=== PATIENT | male | born 1985 | race Caucasian/White ===

== ENCOUNTER 2016-10-06 04:51 | Emergency (ER) | payer MEDICAID ==
[2016-10-06 05:00] VITALS: BP 131/82
[2016-10-06] MEDS ORDERED: PENICILLIN V POTASSIUM 500 MG TABLET PO ONE (06:14)
--- NOTE | 2016-10-06 06:14 | ER Document Report ---
ED Oral Problem - General Mode of Arrival: Ambulatory Information source: Patient TRAVEL OUTSIDE OF THE [place] IN LAST 30 DAYS: No - HPI Patient complains to provider of: Toothache Onset: Other - see narrative Quality of pain: Achy Severity: None Associated symptoms: None Similar symptoms previously: Yes - General Chief Complaint: Toothache Stated Complaint: TOOTHACHE Time Seen by Provider: 10/06/16 06:04 Notes: Patient is a 31 year old male that presents to the emergency department today with complaints of dental pain 1 week. Patient states that the pain got much worse over the last 2 days. Patient states he had a Toradol pill from a previous illness at home he took prior to arrival. Patient states this relieved most of his pain. Patient states he has had multiple dental caries in the past. Patient states that he cannot get into see his dentist for 2 weeks because she is "very busy". (RICARDA LEW) - Related Data Allergies/Adverse Reactions: No Known Allergies Allergy (Verified 07/16/14 02:33) Past Medical History - General Information source: Patient, [facility] Records - Social History Smoking Status: Current Every Day Smoker Frequency of alcohol use: None Drug Abuse: None Lives with: Family Family History: Arthritis, CAD, CVA, DM, Hyperlipidemia, Hypertension, Malignancy Patient has suicidal ideation: No Patient has homicidal ideation: No GI Medical History: Reports: Hx Gastroesophageal Reflux Disease Musculoskeltal Medical History: Reports Hx Arthritis, Reports Hx Musculoskeletal Trauma Traumatic Medical History: Reports: Hx Fractures Past Surgical History: Reports: Hx Oral Surgery - Immunizations Immunizations up to date: Yes Hx Diphtheria, Pertussis, Tetanus Vaccination: Yes - 2009 Review of Systems - Review of Systems Constitutional: No symptoms reported EENT: See HPI, Mouth pain, Dental problem Cardiovascular: No symptoms reported Respiratory: No symptoms reported Gastrointestinal: No symptoms reported Genitourinary: No symptoms reported Male Genitourinary: No symptoms reported Musculoskeletal: No symptoms reported Skin: No symptoms reported Hematologic/Lymphatic: No symptoms reported Neurological/Psychological: No symptoms reported -: Yes All other systems reviewed and negative Physical Exam - Vital signs Vitals: Temp Pulse Resp BP Pulse Ox 98.0 F 80 16 131/82 H 98 10/06/16 04:59 10/06/16 04:59 10/06/16 04:59 10/06/16 04:59 10/06/16 04:59 - Notes Notes: Physical Exam: General: Alert, appears well. HEENT: Normocephalic. Atraumatic. PERRLA. Extraocular movements intact. Oropharynx clear. Diffuse dental caries, chipped filling at tooth #20, no abscess appreciated. No posterior pharynx swelling, airway patent. Neck: Supple. Cardiovascular: Regular rate and rhythm. Respiratory: No respiratory distress. Abdominal: Normal Inspection. No distension. Extremities: Moves all four extremities. Neurological: Normal cognition. AAOx4. Normal speech. Psychological: Normal affect. Normal Mood. Skin: Warm. Dry. Normal color. (RICARDA LEW) Course - Re-evaluation Re-evalutation: 10/06/16 06:21 Patient presents emergency department with toothache for the past week. He says got increasingly worse the past few days this particular tooth has had fillings before and is chipped. It is the lower left mandibular molar. There is no associated periapical abscess swelling facial swelling abscess. No posterior pharyngeal edema trachea midline neck is supple is well-appearing nontoxic no acute respiratory distress will be seen to go pack of Vicodin prescription for Ultram and pen VK. He has a dental appointment in 2 weeks. And discussed reasons for ED return sooner (BONITA HUTTON) - Vital Signs Vital signs: Temp Pulse Resp BP Pulse Ox 98.0 F 80 16 131/82 H 98 10/06/16 04:59 10/06/16 04:59 10/06/16 04:59 10/06/16 04:59 10/06/16 04:59 Discharge - Discharge Clinical Impression: Dental caries Condition: Stable Disposition: HOME, SELF-CARE Instructions: Toothache ([facility]) Additional Instructions: Dental Infection or Abscess You have an infection, perhaps an abscess (pus formation) of the gum around one of your teeth, which is probably decayed. If there is an abscess, it may drain on its own or it may need to be opened or lanced. Severe swelling or drainage around a tooth usually means a deep dental abscess which usually requires evaluation and treatment by a dentist or oral surgeon. Antibiotics may be prescribed while awaiting dental treatment. If you develop high fever with chills, worsening pain, or increasing swelling in the area, see a dentist or oral surgeon immediately or return to the Emergency Department immediately. Follow up with your dental physician as you have an appointment return for increasing worsening or new symptoms Prescriptions: Penicillin V Potassium [Penicillin Vk 500 mg Tablet] 500 mg PO BID #20 tablet Tramadol HCl [Ultram 50 mg Tablet] 50 mg PO ASDIR PRN #12 tablet PRN Reason: Referrals: MIRIAN PITT MD [Primary Care Provider] - Follow up as needed Scribe Attestation: 10/06/16 06:21 I personally performed the services described in the documentation reviewed the documentation recorded by my scribe in my presence and it accurately and completely records my words and actions (BONITA HUTTON) Scribe Documentation - Scribe Written by Scribe:: Honorio Velasquez, [id number] acting as scribe for :: Sohail
[2016-10-06] MEDS ORDERED: HYDROCODONE/ACETAMINOPHEN 5-325 MG 6 TAB/DSPK PO PRN (06:18)
== END 2016-10-06 06:54 | disposition home or self-care (01) ==
LOC: ER 04:51
DX: K02.9 Dental caries, unspecified (principal); K08.89 Other specified disorders of teeth and supporting structures; Z79.899 Other long term (current) drug therapy; F17.200 Nicotine dependence, unspecified, uncomplicated
CPT/HCPCS: 99282

== ENCOUNTER 2016-11-18 00:38 | Emergency (ER) | payer SELFPAY ==
--- NOTE | 2016-11-18 01:34 | ER Document Report ---
ED Medical Screen (RME) - General Chief Complaint: Drug Abuse Stated Complaint: DRUG DETOX Time Seen by Provider: 11/18/16 01:24 Notes: 31-year-old male, history of opiate abuse, states he takes off the street Percocets and recently with ever he can get his hands on. He states he wants to go to detox, he wants to talk to a psychiatrist, and he wants help. He denies suicidal or homicidal ideations. He denies any nausea or vomiting, he denies feeling ill at this time. TRAVEL OUTSIDE OF THE [place] IN LAST 30 DAYS: No - Related Data Allergies/Adverse Reactions: No Known Allergies Allergy (Verified 11/18/16 00:44) Past Medical History - Social History Chew tobacco use (# tins/day): No Frequency of alcohol use: None Drug Abuse: Heroin, Prescription drugs, Other Renal/ Medical History: Denies: Hx Peritoneal Dialysis GI Medical History: Reports: Hx Gastroesophageal Reflux Disease Musculoskeltal Medical History: Reports Hx Arthritis, Reports Hx Musculoskeletal Trauma Traumatic Medical History: Reports: Hx Fractures Past Surgical History: Reports: Hx Oral Surgery - Immunizations Immunizations up to date: Yes Hx Diphtheria, Pertussis, Tetanus Vaccination: Yes - 2009 Physical Exam - Vital signs Vitals: Temp Pulse Resp BP Pulse Ox 99.0 F 92 14 142/84 H 98 11/18/16 00:44 11/18/16 00:44 11/18/16 00:44 11/18/16 00:44 11/18/16 00:44 - Psychological Associated symptoms: No: Normal affect - Flat affect, speaks quietly, but makes good eye contact Course - Re-evaluation Re-evalutation: Patient states he does not want to leave at this time with medications to help with opiate withdrawal symptoms to follow-up with [facility]. He states he wants to think about it and he wants to talk to a psychiatrist. He is calm, he does not appear to be a danger to himself or others. He denies SI or HI. - Vital Signs Vital signs: Temp Pulse Resp BP Pulse Ox 99.0 F 92 14 142/84 H 98 11/18/16 00:44 11/18/16 00:44 11/18/16 00:44 11/18/16 00:44 11/18/16 00:44
--- NOTE | 2016-11-18 02:53 | ER Document Report ---
ED Substance Abuse / Acc. OD - General Mode of Arrival: Ambulatory Information source: Patient TRAVEL OUTSIDE OF THE [place] IN LAST 30 DAYS: No - HPI Patient complains to provider of: Substance abuse Quality of pain: No pain <RICARDA LEW - Last Filed: 11/18/16 05:43> <NANI SMITH - Last Filed: 11/18/16 07:00> - General Chief Complaint: Drug Abuse Stated Complaint: DRUG DETOX Time Seen by Provider: 11/18/16 01:24 Notes: Patient is a 31-year-old male who presents to the emergency department today with a request for help with detox. Patient states he has been abusing prescription drugs since approximately 2008. Patient states when he ran out of Percocet he would "do whatever he could get his hands on". Patient admits to opiate abuse, crack cocaine abuse, and heroin abuse. Patient states he snorts all of these drugs, denying any injection. (RICARDA LEW) - Related Data Allergies/Adverse Reactions: No Known Allergies Allergy (Verified 11/18/16 00:44) Home Medications: Current Home Medications No Home Medications 11/18/16 [History] Past Medical History - General Information source: Patient - Social History Smoking Status: Current Every Day Smoker Cigarette use (# per day): Yes Chew tobacco use (# tins/day): No Frequency of alcohol use: None Drug Abuse: Cocaine, Heroin, Prescription drugs Lives with: Family Family History: Reviewed & Not Pertinent, Arthritis, CAD, CVA, DM, Hyperlipidemia, Hypertension, Malignancy GI Medical History: Reports: Hx Gastroesophageal Reflux Disease Musculoskeltal Medical History: Reports Hx Arthritis, Reports Hx Musculoskeletal Trauma Traumatic Medical History: Reports: Hx Fractures Past Surgical History: Reports: Hx Oral Surgery - Immunizations Immunizations up to date: Yes Hx Diphtheria, Pertussis, Tetanus Vaccination: Yes - 2009 <RICARDA LEW - Last Filed: 11/18/16 05:43> Review of Systems - Review of Systems Constitutional: No symptoms reported EENT: No symptoms reported Cardiovascular: No symptoms reported Respiratory: No symptoms reported Gastrointestinal: No symptoms reported Genitourinary: No symptoms reported Male Genitourinary: No symptoms reported Musculoskeletal: No symptoms reported Skin: No symptoms reported Hematologic/Lymphatic: No symptoms reported Neurological/Psychological: Other - requesting help with detox -: Yes All other systems reviewed and negative <RICARDA LEW - Last Filed: 11/18/16 05:43> Physical Exam <RICARDA LEW - Last Filed: 11/18/16 05:43> <NANI SMITH - Last Filed: 11/18/16 07:00> - Vital signs Vitals: Temp Pulse Resp BP Pulse Ox 99.0 F 92 14 142/84 H 98 11/18/16 00:44 11/18/16 00:44 11/18/16 00:44 11/18/16 00:44 11/18/16 00:44 - Notes Notes: PHYSICAL EXAM GENERAL: Alert, interacts well. No acute distress. HEAD: Normocephalic, atraumatic. EYES: Pupils equal, round, and reactive to light. Extraocular movements intact. ENT: Oral mucosa moist, tongue midline. NECK: Full range of motion. Supple. Trachea midline. LUNGS: Clear to auscultation bilaterally, no wheezes, rales, or rhonchi. No respiratory distress. HEART: Regular rate and rhythm. No murmurs, gallops, or rubs. ABDOMEN: Soft, non-tender. Non-distended. Bowel sounds present in all 4 quadrants. EXTREMITIES: Moves all 4 extremities spontaneously. No edema, radial and dorsalis pedis pulses 2/4 bilaterally. No cyanosis. NEUROLOGICAL: Alert and oriented x3. Normal speech. PSYCH: Normal affect, normal mood. SKIN: Warm, dry, normal turgor. No rashes or lesions noted. (RICARDA LEW) Course - Laboratory Result Diagrams: 11/18/16 03:05 11/18/16 03:05 <RICARDA LEW - Last Filed: 11/18/16 05:43> - Laboratory Result Diagrams: 11/18/16 03:05 11/18/16 03:05 <NANI SMITH - Last Filed: 11/18/16 07:00> - Re-evaluation Re-evalutation: 11/18/16 06:58 CBC shows slight leukocytosis of 10 point, mild anemia with hemoglobin 13.4, CMP unremarkable, urinalysis unremarkable, urine drug screen shows opiates, cocaine, marijuana. 11/18/16 06:58 Patient is medically cleared, request to stay until he can speak with our mental health team. Does not meet IVC criteria. May be discharged any time prior to seeing mental health team should he so choose. (NANI SMITH) - Vital Signs Vital signs: Temp Pulse Resp BP Pulse Ox 98.7 F 85 16 133/80 H 99 11/18/16 06:42 11/18/16 06:42 11/18/16 06:42 11/18/16 06:42 11/18/16 06:42 - Laboratory Laboratory results interpreted by me: 11/18/16 11/18/16 03:05 03:05 WBC 10.8 H Hgb 13.4 L AST 14 L Discharge <RICARDA LEW - Last Filed: 11/18/16 05:43> <NANI SMITH - Last Filed: 11/18/16 07:00> - Discharge Clinical Impression: Polysubstance abuse Hypertension Qualifiers: Hypertension type: essential hypertension Qualified Code(s): I10 - Essential ( primary) hypertension Condition: Stable Disposition: HOME, SELF-CARE Forms: Elevated Blood Pressure Referrals: [facility] [Provider Group] - Follow up as needed Scribe Attestation: 11/18/16 06:59 I personally performed the services described in the documentation, reviewed and edited the documentation which was dictated to the scribe in my presence, and it accurately records my words and actions. (NANI SMITH) Scribe Documentation - Scribe Written by Scribe:: Honorio Velasquez, [id number] 11/18/2016 acting as scribe for :: Elizabeth <RICARDA LEW - Last Filed: 11/18/16 05:43>
[2016-11-18] MEDS ORDERED: NICOTINE 14 MG/24 HR PATCH.TD24 TD SCH ×2 (03:15→10:00)
[2016-11-18] MEDS ORDERED: NICOTINE 14 MG/24 HR PATCH.TD24 TD ONE (03:15)
[2016-11-18 03:16] LABS: ABSOLUTE BASOPHILS # (AUTO) 0.1 10^3/uL (0.0-0.2); ABSOLUTE EOSINOPHILS # (AUTO) 0.1 10^3/uL (0.0-0.6); ABSOLUTE LYMPHOCYTES (AUTO) 3.1 10^3/uL (0.5-4.7); ABSOLUTE MONOCYTES (AUTO) 0.9 10^3/uL (0.1-1.4); ABSOLUTE NEUT (AUTO) 6.5 10^3/uL (1.7-8.2); BASOPHILS % (AUTO) 0.9 % (0-2); EOSINOPHILS % (AUTO) 1.3 % (0-6); HEMATOCRIT 39.6 % (37.9-51.0); HEMOGLOBIN 13.4 g/dL (13.5-17.0); HGB HCT DIFFERENCE 0.6; LYMPHOCYTES % (AUTO) 29.1 % (13-45); MEAN CORPUSCULAR HEMOGLOBIN 30.3 pg (27.0-33.4); MEAN CORPUSCULAR HGB CONC 33.8 g/dL (32.0-36.0); MEAN CORPUSCULAR VOLUME 90 fl (80-97); MONOCYTES % (AUTO) 8.3 % (3-13); RED BLOOD COUNT 4.42 10^6/uL (4.35-5.55); RED CELL DISTRIBUTION WIDTH 13.9 % (11.5-14.0); SEGMENTED NEUTROPHILS % (AUTO) 60.4 % (42-78); WHITE BLOOD COUNT 10.8 10^3/uL (4.0-10.5)
[2016-11-18 03:26] LABS: APPEARANCE,URINE TURBID; BILIRUBIN,URINE NEGATIVE (NEGATIVE); CALCIUM OXALATE CRYSTALS,URINE RARE /HPF; GLUCOSE, URINE NEGATIVE (NEGATIVE); KETONES,URINE NEGATIVE (NEGATIVE); LEUKOCYTE ESTERASE,URINE NEGATIVE (NEGATIVE); NITRITE,URINE NEGATIVE (NEGATIVE); PROTEIN,URINE NEGATIVE (NEGATIVE); URINE SPECIFIC GRAVITY 1.016; UROBILINOGEN,URINE NEGATIVE mg/dL (<2.0)
[2016-11-18 03:29] LABS: ALANINE AMINOTRANSFERASE 25 U/L (21-72); ALBUMIN 4.1 g/dL (3.5-5.0); ALKALINE PHOSPHATASE 62 U/L (38-126); ANION GAP 9 (5-19); ASPARTATE AMINO TRANSFERASE 14 U/L (17-59); BILIRUBIN,DIRECT 0.3 mg/dL (0.0-0.4); BILIRUBIN,TOTAL 0.6 mg/dL (0.2-1.3); BLOOD UREA NITROGEN 8 mg/dL (7-20); CALCIUM 9.1 mg/dL (8.4-10.2); CARBON DIOXIDE 29 mmol/L (22-30); CHLORIDE 104 mmol/L (98-107); CREATININE RESULT 1.15 mg/dL (0.52-1.25); GLUCOSE 92 mg/dL (75-110); SODIUM 142.4 mmol/L (137-145); TOTAL PROTEIN 6.9 g/dL (6.3-8.2)
[2016-11-18 03:34] LABS: URINE BARBITURATES SCREEN NEGATIVE; URINE METHADONE SCREEN NEGATIVE; URINE OPIATES LOW UNCONFIRMED POSITIVE; URINE PHENCYCLIDINE SCREEN NEGATIVE
--- NOTE | 2016-11-18 09:16 | ER Document Report ---
ED Psych Disorder / Suicide - General Chief Complaint: Drug Abuse Stated Complaint: DRUG DETOX Time Seen by Provider: 11/18/16 01:24 Mode of Arrival: Ambulatory Information source: Patient, [facility] Records TRAVEL OUTSIDE OF THE [place] IN LAST 30 DAYS: No - HPI Patient complains to provider of: Other - drug abuse Onset: Other Onset was: Cannot confirm Suicide Risk Factors: Substance abuse Normal mood: Yes Associated symptoms: Flat affect Similar symptoms previously: Yes Recently seen / treated by doctor: No Notes: Patient is a 31 year old male who presented over night seeking assistance for chronic prescription and illicit drug abuse and possible detox. Patient was held overnight to speak with behavioral health, to assist with possible resources, etc. Patient this morning states he has "been abusing the sh out of Percocets since 2007." Patient endorses daily use for numerous years during this period, with one attempt to discontinue use without professional support. Patient states he lasted 14 days. Patient endorses additional drug use, to include heroin, cocaine, and marijuana. Patient reports he would like to go to detox. Patient states he needs to get his life back together, but also denies any precipitating event to prompt him to pursue detox. Discussed with patient services available in this area, to include voluntarily pursuing detox via [facility] mobile crisis, or walking into [facility] tomorrow morning at 0800 seeking assistance. Patient states he would like to pursue detox and understands that substance abuse services in [place] are largely a voluntary process. Patient denies any prior suicide attempts, and denies current suicidal ideations. Patient is A&O. Mood is euthymic with flat affect. Patient denies suicidal/ homicidal ideations, intent, plan, or means. Patient denies A/V H; delusions not noted. Thought processes were organized. Conversational speech was WNL for prosody. Intellectual abilities were estimated within average range. Attention and focus were poor. Insight, judgment, and impulse control were poor to fair. Opioid Use disorder, per history Patient is psychiatrically cleared for discharge. Patient is recommended to follow up with substance abuse services, either [place] as a walk in tomorrow morning for assessment or via mobile crisis to pursue voluntary detox. Patient does not meet criteria for IVC as he denies suicidal/homicidal ideations, and is not experiencing command hallucinations telling him to harm others. I consulted with Dr. Seaman in regards to the care and management of this patient. - Related Data Allergies/Adverse Reactions: No Known Allergies Allergy (Verified 11/18/16 00:44) Home Medications: Current Home Medications No Home Medications 11/18/16 [History] Past Medical History - General Information source: Patient - Social History Smoking Status: Current Every Day Smoker Cigarette use (# per day): Yes Chew tobacco use (# tins/day): No Frequency of alcohol use: None Drug Abuse: Cocaine, Heroin, Prescription drugs Lives with: Family Family History: Reviewed & Not Pertinent, Arthritis, CAD, CVA, DM, Hyperlipidemia, Hypertension, Malignancy Patient has suicidal ideation: No Patient has homicidal ideation: No Renal/ Medical History: Denies: Hx Peritoneal Dialysis GI Medical History: Reports: Hx Gastroesophageal Reflux Disease Musculoskeltal Medical History: Reports Hx Arthritis, Reports Hx Musculoskeletal Trauma Traumatic Medical History: Reports: Hx Fractures Past Surgical History: Reports: Hx Oral Surgery - Immunizations Immunizations up to date: Yes Hx Diphtheria, Pertussis, Tetanus Vaccination: Yes - 2009 Physical Exam - Vital signs Vitals: Temp Pulse Resp BP Pulse Ox 99.0 F 92 14 142/84 H 98 11/18/16 00:44 11/18/16 00:44 11/18/16 00:44 11/18/16 00:44 11/18/16 00:44 Course - Vital Signs Vital signs: Temp Pulse Resp BP Pulse Ox 98.7 F 85 16 133/80 H 99 11/18/16 06:42 11/18/16 06:42 11/18/16 06:42 11/18/16 06:42 11/18/16 06:42 - Laboratory Result Diagrams: 11/18/16 03:05 11/18/16 03:05 Laboratory results interpreted by me: 11/18/16 11/18/16 03:05 03:05 WBC 10.8 H Hgb 13.4 L AST 14 L Discharge - Discharge Clinical Impression: Polysubstance abuse Hypertension Qualifiers: Hypertension type: essential hypertension Qualified Code(s): I10 - Essential ( primary) hypertension Condition: Stable Disposition: HOME, SELF-CARE Additional Instructions: Substance abuse Please pursue substance abuse assessment and treatment. You have been provided a list of resources to assist you in following up and possibly pursuing detox for your drug addiction. Please return if your symptoms worsen. Forms: Elevated Blood Pressure Referrals: [facility] [Provider Group] - Follow up as needed [facility] [Provider Group] [facility] [Provider Group] - Follow up as needed Scribe Attestation: 11/18/16 06:59 I personally performed the services described in the documentation, reviewed and edited the documentation which was dictated to the scribe in my presence, and it accurately records my words and actions.
[2016-11-18 10:49] VITALS: BP 122/67
== END 2016-11-18 10:49 | disposition home or self-care (01) ==
LOC: ER 00:38
DX: F11.10 Opioid abuse, uncomplicated (principal); F14.10 Cocaine abuse, uncomplicated; I10 Essential (primary) hypertension; D72.829 Elevated white blood cell count, unspecified; D64.9 Anemia, unspecified; F17.210 Nicotine dependence, cigarettes, uncomplicated
CPT/HCPCS: 36415; 80053; 80307; 81001; 85025; 99285